=== PATIENT | male | born 1995 | race American Indian/Alaskan Native ===

== ENCOUNTER 2020-10-20 13:35 | Emergency (ER) | payer MEDICAID ==
[2020-10-20 14:40] VITALS: BP 138/90
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
[2020-10-20 15:59] LABS: Bilirubin,Urine NEG (Negative); Blood,Urine NEG (Negative); Color,Urine Yellow (Yellow); Mucus,Urine 3+ /HPF; Protein,Urine <15 mg/dL mg/dL (Negative)
[2020-10-20 16:06] LABS: Amphetamine Screen,Urine Negative; Benzodiazepines Screen,Urine Negative; Cocaine Screen,Urine Negative; Methadone Screen,Urine Negative; Opiate Screen,Urine Negative
[2020-10-20 16:13] LABS: Basophils # (Auto) 0.1 K/mm3 (0.0-0.1); Basophils % (Auto) 0.8 % (0.0-1.8); Eosinophils # (Auto) 0.1 K/mm3 (0.0-0.4); Hematocrit 38.9 % (35.5-45.6); Hemoglobin 13.2 gm/dl (11.8-15.2); Lymphocytes # (Auto) 2.5 K/mm3 (1.2-5.4); Lymphocytes % (Auto) 39.6 % (13.4-35.0); Mean Corpuscular HGB Conc 34 % (32-34); Mean Corpuscular Volume 95 fl (84-94); Monocytes # (Auto) 0.5 K/mm3 (0.0-0.8); Monocytes % (Auto) 7.9 % (0.0-7.3); Platelet Count 267 K/mm3 (140-440); Red Blood Count 4.09 M/mm3 (3.65-5.03); Red Cell Distribution Width 13.3 % (13.2-15.2)
--- NOTE | 2020-10-20 16:23 | XRay Report ---
CHEST 2 VIEWS INDICATION / CLINICAL INFORMATION: Left chest pain. COMPARISON: None available. FINDINGS: SUPPORT DEVICES: None. HEART / MEDIASTINUM: No significant abnormality. LUNGS / PLEURA: No significant pulmonary or pleural abnormality. No pneumothorax. ADDITIONAL FINDINGS: There is mild scoliotic curvature in the thoracolumbar spine. IMPRESSION: 1. No acute findings. Signer Name: Justin Coker MD Signed: 10/20/2020 4:18 PM Workstation Name: [id number]
[2020-10-20 16:30] LABS: Alanine Aminotransferase 17 units/L (7-56); Albumin 4.7 g/dL (3.9-5); BUN/Creatinine Ratio 16; Blood Urea Nitrogen 13 mg/dL (9-20); Calcium 9.6 mg/dL (8.4-10.2); Hemolysis Index 8
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
[2020-10-20 17:13] LABS: Cannabinoid Screen,Urine Positive
--- NOTE | 2020-10-22 11:51 | Electrocardiograph Report ---
[facility] Test Date: 2020-10-20 Test Time: 15:36:12 Pat Name: SHAKEEL RUIZ Department: Room: Gender: M Manager Rfid: DARWIN : 1995 Requested By: CIRO ZAPATA Order Number: [id number] Reading MD: Mateo Awad Measurements Intervals [place] Rate: 63 P: 41 ND: 134 QRS: 63 QRSD: 102 T: 63 QT: 400 QTc: 411 Interpretive Statements Sinus rhythm ST elev, probable normal early repol pattern No previous ECG available for comparison Electronically Signed On 10-22-2020 11:51:06 EDT by Mateo Awad
== END 2020-10-20 19:03 | disposition home or self-care (01) ==
LOC: ED 13:35
DX: R07.89 Other chest pain (principal); R74.8 Abnormal levels of other serum enzymes; F17.200 Nicotine dependence, unspecified, uncomplicated; Z79.899 Other long term (current) drug therapy
CPT/HCPCS: 36415; 71046; 80053; 80307; 81001; 83690; 83735; 84484; 85025; 93005; 99283